=== PATIENT | female | born 1975 | race Two or more races ===

== ENCOUNTER 2022-10-15 17:20 | Outpatient (CLI) | payer SELFPAY | END 2022-10-15 17:21 | disposition home or self-care (01) | PROVIDERS: PCP Family Medicine; Visit Provider Physician Assistant | DX: R10.13 Epigastric pain (principal) | CPT/HCPCS: 84484; 85379 ==

== ENCOUNTER 2022-10-16 00:26 | Emergency (ER) | payer SELFPAY ==
[2022-10-16] VITALS (8 sets, daily range): BP systolic 101–129; BP diastolic 64–74; PULSE 56–82; RESP 16–18; TEMP 36.3–36.9; O2SAT 96–100; BMI 31.5
--- NOTE | 2022-10-16 01:40 | CRLHL7_ITS ---
For Patients: As a result of the Century Cures Act, medical imaging exams and procedure reports are released immediately into your electronic medical record. You may view this report before your referring provider. If you have questions, please contact your health care provider. INDICATION: Right upper quadrant pain, Epigastric TECHNIQUE: Ultrasound abdomen limited. Sonographic images of the right upper quadrant were obtained using quintero-scale and color Doppler images. COMPARISON: None FINDINGS: Liver: The liver parenchyma is normal in echotexture. Gallbladder: Numerous echogenic, shadowing gallstones are present within the gallbladder. Gallbladder wall is near the upper limits of normal measuring 4 mm. No pericholecystic fluid is present. No sonographic Yates???s sign is present. Common bile duct: 5 mm. No intrahepatic biliary ductal dilatation seen. Pancreas: The visualized portions of the pancreatic head and body are normal in appearance. Right Kidney: 11.4 cm. There is a cyst in the upper pole of the right kidney measuring 2 cm. No hydronephrosis or ureterectasis is seen. Vascular: The visualized abdominal aorta and IVC are unremarkable. IMPRESSION: 1. Numerous echogenic, shadowing gallstones are present within the gallbladder. Dictated by Thom Amezcua MD @ 10/16/2022 3:16:01 AM Dictated by: Thom Amezcua MD @ 10/16/2022 03:16:04 (Electronically Signed)
[2022-10-16] MEDS: 0.9 % SODIUM CHLORIDE 1000 ml 1,000 ML IV (01:49)
[2022-10-16 01:55] LABS: Basophils Absolute Auto 0.02 K/uL (0.00-0.30); Basophils Percent Auto 0.3 % (0.0-3.0); Eosinophils Absolute Auto 0.03 K/uL (0.00-0.50); Eosinophils Percent Auto 0.5 % (0.0-7.0); Hematocrit 37.6 % (33.0-51.0); Hemoglobin* 12.3 gm/dL (12.0-16.0); Lymphocytes Absolute Auto 1.57 K/uL (0.90-2.90); Lymphocytes Percent Auto 26.4 % (20-44); Mean Corpuscular HGB Conc 33 gm/dL (32-36); Mean Corpuscular Hemoglobin 30 pg (26-34); Mean Corpuscular Volume 93 fL (80-100); Monocytes Percent Auto 6.2 % (0.0-11.0); Neutrophils Absolute Auto 3.95 K/uL (1.7-7.0); Neutrophils Percent Auto 66.6 % (42.0-72.0); Platelet Count* 239 K/uL (140-440); RDW Coefficient of Variation % 12.3 % (11.5-15.5); Red Blood Count 4.04 m/uL (4.00-5.20); White Blood Count* 5.94 K/uL (4.50-11.00)
[2022-10-16 01:56] LABS: Appearance Urine Clear (Clear); Bilirubin Urine Negative (Negative); Blood Urine Trace-intact (Negative); Color Urine Yellow (Yellow); Glucose Urine Negative (Negative); Ketones Urine Negative (Negative); Leukocyte Esterase Urine Negative (Negative); Nitrite Urine Negative (Negative); Protein Urine Negative (Negative); Specific Gravity Urine >= 1.030 (1.000-1.030); Urobilinogen Urine 0.2 (0.2-1.0)
[2022-10-16 01:57] LABS: Slide Review Reflex No
[2022-10-16 02:07] LABS: Bacteria Urine Few; RBC Urine 0-2 (0-2); Squamous Epithelial Cell Urine Few (None-Few); WBC Urine 0-2 (0-5)
[2022-10-16 02:08] LABS: Albumin* 4.5 g/dL (3.3-5.0); Chloride* 103 mmol/L (96-114); Sodium* 135 mmol/L (135-149)
[2022-10-16 02:08] LABS: Mucus Urine Few
[2022-10-16 02:10] LABS: Amylase* 69 U/L (18-89)
[2022-10-16 02:11] LABS: Alanine Aminotransferase* 31 U/L (4-35); Alkaline Phosphatase* 77 U/L (40-150); Anion Gap 6 mEq/L (7-15); Aspartate Amino Transferase* 31 U/L (12-35); Bilirubin Total* 0.5 mg/dL (0.1-1.5); Blood Urea Nitrogen* 9 mg/dL (5-24); Carbon Dioxide* 26 mmol/L (20-32); Creatinine* 0.6 mg/dL (0.5-1.5); Est. Creatinine Clearance* 92.66; Estimated Glomerular Filt Rate 112 ml/min; Total Protein* 8.2 g/dL (6.0-8.3)
[2022-10-16 02:12] LABS: Calcium* 9.1 mg/dL (8.4-10.6); Glucose* 127 mg/dL (60-115)
[2022-10-16 02:15] LABS: C Reactive Protein* < 0.5 mg/dL (0.5-1.0)
--- NOTE | 2022-10-16 02:30 | ED.GENADULT ---
HPI - General Adult General Chief complaint: Abdominal Pain Stated complaint: abdominal pain Time Seen by Provider: 10/16/22 01:25 Source: patient, family and psychiatric registered nurse Mode of arrival: ambulatory Limitations: no limitations History of Present Illness HPI narrative: 46-year-old female reports 3 day history of intermittent epigastric area abdominal pain with occasional radiation to the mid back. No fevers, no nausea, no vomiting. Comes in waves, tends to last about 5 minutes at a time, can be severe at times. She describes a feeling of heartburn and then reports the start of the abdominal pain. States that it is sometimes related to food but not consistently. Her last meal was around 11:00 a.m., shortly before the pain started but the pain was most severe around 4:00 p.m. today. She reports that she was seen in urgent care. Notes and labs are reviewed. Negative troponins noted. She has not tried taking any medication to help with her symptoms. She denies nausea and vomiting to me. Abdominal x-ray was performed and this is also reviewed. She did have a moderate stool burden, but no free air or signs of obstruction per my interpretation. Urgent care provider prescribed Zofran and recommended cfaw-irw-wisqhpr omeprazole which the patient has not purchased nor tried. She does not give me a clear answer when I ask what worsened causing her to come to an emergency room. There was no blood in her stools, no gynecological changes, no dysuria. There has been no vomiting. No fever. No abdominal trauma. No prior history of similar symptoms. No family history of gallbladder disease. No recent significant alcohol intake. No prior history of abdominal surgeries, no personal history of cardiac disease. Past medical history she states is benign, no major long-term health problems. ROS is notable for a GI symptoms as above. Otherwise denies times 12 systems. ROS is notable for the epigastric area pain radiating as above, otherwise denies times 12 systems.. Related Data Home Medications Medication Instructions Recorded Confirmed ferrous sulfate 325 mg (65 mg 325 mg PO DAILY 10/16/22 10/16/22 iron) tablet (FeroSul) levothyroxine 100 mcg tablet 100 mcg PO DAILY 10/16/22 10/16/22 Allergies Allergy/AdvReac Type Severity Reaction Status Date / Time No Known Drug Allergies Allergy Verified 10/16/22 00:44 [facility] Medical History Epigastric pain ?R10.13 - Epigastric pain (ICD-10) Social History Smoking Status: Never smoker Do you use any of these nicotine containing products: None Second hand tobacco smoke exposure: No How often do you have a drink containing alcohol: never How often do you have six or more drinks on one occasion: Never AUDIT-C Alcohol total score: 0 Non-prescribed substance use: denies use service: No Exam Const: Vital Signs, click to edit/add: Vital Signs - 24 hr 10/16/22 00:40 10/16/22 01:54 10/16/22 02:01 Temperature 97.3 F L 98.5 F Pulse Rate 59 L 56 L Pulse Rate [Pulse Oximeter] 82 Respiratory Rate 18 16 16 Blood Pressure 112/65 114/70 Blood Pressure [Ri ght Upper Arm] 129/67 Pulse Oximetry 96 100 99 Oxygen Delivery Me thod Room Air 10/16/22 02:32 10/16/22 03:02 10/16/22 04:01 Temperature 98.5 F Pulse Rate 62 67 Pulse Rate [Pulse Oximeter] Respiratory Rate 16 16 Blood Pressure 101/64 108/72 Blood Pressure [Ri ght Upper Arm] Pulse Oximetry 100 100 Oxygen Delivery Me thod 10/16/22 04:07 Temperature 98.1 F Pulse Rate Pulse Rate [Pulse Oximeter] 74 Respiratory Rate 16 Blood Pressure Blood Pressure [Ri ght Upper Arm] 115/74 Pulse Oximetry 100 Oxygen Delivery Me thod Room Air Documenting provider has reviewed patient's vital signs: yes Common normals: no apparent distress General appearance: cooperative, comfortable and well kempt Other: Appears well nourished, nontoxic, well hydrated. HENMT: Common normals: normocephalic Head and scalp: normocephalic Face and sinus: normal facial exam Throat: posterior oropharynx normal Eye: Common normals: conjunctivae normal General eye: normal appearance of both eyes Conjunctiva: conjunctiva(e) normal Neck & C-Spine: Common normals: full ROM and no lymphadenopathy Resp: Common normals: normal respiratory effort, no use of accessory muscles and clear to auscultation bilaterally Effort & inspection: able to speak in complete sentences Auscultation: clear to auscultation bilaterally Cardio: Common normals: regular rate, regular rhythm, S1 normal heart sound, S2 normal heart sound and no murmurs Rate: regular rate Rhythm: regular rhythm Heart sounds: S1 normal and S2 normal GI: Common normals: Normal to inspection, nondistended, normoactive bowel sounds present, soft to palpation, no hepatosplenomegaly and no masses Palpation: soft and no hepatosplenomegaly Other: Tender to the right upper quadrant and epigastrium, it is difficult to sort out which of the 2 is worse but neither are accompanied by any guarding. Extremity: Common normals: normal to inspection, normal capillary refill and no pedal edema Neuro: Speech: speech normal Gait (neuro): normal gait Psych: Common normals: thought process normal and speech normal Appearance: well kempt Speech: normal speech Mood and affect: euthymic mood Thought process: normal thought process Insight: insight good Judgement: judgment good Skin: Common normals: no rashes or lesions noted General skin exam: no rashes or lesions noted Course Course Hospital Course: Differential diagnosis most likely GERD, cannot exclude pancreatitis, choledocholithiasis, cholecystitis, colitis, constipation, other similar etiology. Cardiac workup has already been performed and negative, results reviewed. Will not pursue this further. I have recommended oral famotidine and an ultrasound of the right upper quadrant to rule out gallbladder disease as well as liver enzymes. Additional few basic labs that were not able to be performed at urgent care and urinalysis. Await findings. Reevaluation(s) Time of Reevaluation #1: 02:58 Reevaluation #1: without any fever, white count, CRP elevation, less suspicion for infection. She declined the famotidine to the nurse, stating she did not have heartburn when she did clearly tell me that she had heartburn in used though specific words. Overall, her symptoms seem consistent with gallstones. No emergent findings. She would benefit from an outpatient surgical consult to see if cholecystectomy would be helpful. Will recommend gallbladder diet and discussed alarm symptoms that would warrant ED presentations such as fever, persistent vomiting, worsening of symptoms. Awaiting formal ultrasound report. Time of Reevaluation #2: 04:07 Reevaluation #2: Discussed ultrasound findings with patient through psychiatric registered nurse services. Discussed options for elective gallbladder removal. No signs of acute cholecystitis or obstruction that would warrant emergent removal. She would like to try conservative management but is willing to meet with the surgeon at my recommendation to discuss a possible outpatient cholecystectomy. Her stone burden is fairly high and based on her age, ethnicity and gender she is likely to have more gallbladder spells. She was agreeable to a trial of home management with famotidine and hydrocodone if Tylenol and ibuprofen are not effective. She will push fluids and avoid fat in her diet. She verbalizes good understanding to come back if there is any fever, failure of outpatient plan, worsening of pain, persistent vomiting or inability to hold down liquids. All questions answered. Surgical referral placed. Vital Signs Vital signs: Initial Vital Signs Temperature 97.3 F L 10/16/22 00:40 Temperature Source Temporal Artery Scan 10/16/22 00:40 Pulse Rate 82 10/16/22 00:40 Respiratory Rate 18 10/16/22 00:40 Blood Pressure 129/67 10/16/22 00:40 Blood Pressure Mean 87 10/16/22 00:40 Blood Pressure Position Sitting 10/16/22 00:40 Pulse Oximetry 96 10/16/22 00:40 Oxygen Delivery Method Room Air 10/16/22 00:40 Vital Signs Temperature 97.3 F L 10/16/22 00:40 Pulse Rate 82 10/16/22 00:40 Respiratory Rate 18 10/16/22 00:40 Blood Pressure 129/67 10/16/22 00:40 Pulse Oximetry 96 10/16/22 00:40 Oxygen Delivery Method Room Air 10/16/22 00:40 Temperature 98.1 F 10/16/22 04:07 Pulse Rate 74 10/16/22 04:07 Respiratory Rate 16 10/16/22 04:07 Blood Pressure 115/74 10/16/22 04:07 Pulse Oximetry 100 10/16/22 04:07 Oxygen Delivery Method Room Air 10/16/22 04:07 Medical Decision Making Lab Data Lab results reviewed: Yes I reviewed the patient's lab results Lab results narrative: Labs reassuring. Labs ordered by urgent care provider previously also reviewed, not all were repeated. Labs: Lab Results 10/16/22 10/16/22 Range/Units 01:40 01:45 WBC 5.94 (4.50-11.00) K/uL RBC 4.04 (4.00-5.20) m/uL Hgb 12.3 (12.0-16.0) gm/dL Hct 37.6 (33.0-51.0) % MCV 93 (80-100) fL MCH 30 (26-34) pg MCHC 33 (32-36) gm/dL RDW Coeff of Alize 12.3 (11.5-15.5) % Plt Count 239 (140-440) K/uL Neut % (Auto) 66.6 (42.0-72.0) % Lymph % (Auto) 26.4 (20-44) % Perkins % (Auto) 6.2 (0.0-11.0) % Eos % (Auto) 0.5 (0.0-7.0) % Baso % (Auto) 0.3 (0.0-3.0) % Neut # (Auto) 3.95 (1.7-7.0) K/uL Lymph # (Auto) 1.57 (0.90-2.90) K/uL Perkins # (Auto) 0.40 (0.00-0.90) K/UL Eos # (Auto) 0.03 (0.00-0.50) K/uL Baso # (Auto) 0.02 (0.00-0.30) K/uL Abs Immat Gran (auto) 0.00 (0.00-0.30) K/uL Imm/Tot Granulo (auto) 0.0 % Sodium 135 (135-149) mmol/L Potassium 4.0 (3.6-5.1) mmol/L Chloride 103 (96-114) mmol/L Carbon Dioxide 26 (20-32) mmol/L Anion Gap 6 L (7-15) mEq/L BUN 9 (5-24) mg/dL Creatinine 0.6 (0.5-1.5) mg/dL Estimated Creat Clear 92.66 Estimated GFR 112 ml/min Glucose 127 H (60-115) mg/dL Calcium 9.1 (8.4-10.6) mg/dL Total Bilirubin 0.5 (0.1-1.5) mg/dL AST 31 (12-35) U/L ALT 31 (4-35) U/L Alkaline Phosphatase 77 (40-150) U/L C-Reactive Protein < 0.5 L (0.5-1.0) mg/dL Total Protein 8.2 (6.0-8.3) g/dL Albumin 4.5 (3.3-5.0) g/dL Amylase 69 (18-89) U/L Urine Color Yellow (Yellow) Urine Appearance Clear (Clear) Urine pH 6.0 (5.0-8.5) Ur Specific [place] >= 1.030 (1.000-1.030) Urine Protein Negative (Negative) Urine Glucose (UA) Negative (Negative) Urine Ketones Negative (Negative) Urine Blood Trace-intact A (Negative) Urine Nitrite Negative (Negative) Urine Bilirubin Negative (Negative) Urine Urobilinogen 0.2 (0.2-1.0) Ur Leukocyte Esterase Negative (Negative) Urine RBC 0-2 (0-2) Urine WBC 0-2 (0-5) Ur Squamous Epith Cells Few (None-Few) Urine Bacteria Few A (None) Urine Mucus Few A (None) Imaging Data US - abdomen: Attestation: I have reviewed the pertinent imaging results. My impression: Gallbladder stones. Questionable borderline wall thickening but seems more reactive to the stones rather than consistent with acute cholecystitis. Radiologist's impression: IMPRESSION: 1. Numerous echogenic, shadowing gallstones are present within the gallbladder. Discharge Plan Discharge Clinical Impression: Choledocholithiasis Patient Disposition: Home w/ Parent or Adult Condition: Stable Instructions: Gallstones (ED) Additional Instructions: As we discussed, your ultrasound shows gallstones. Thankfully based on your labs and the ultrasound and x-rays performed earlier today, there are no signs of obstruction or of gallbladder infection. For most people, the pain goes away in a couple of days. It is important that you avoid fatty foods in the meantime. For the next 48 hours, I would like for you to eat a very bland diet of clear liquids, broth, dry toast, crackers. You can move up to chicken soup and other very bland foods after 36 hours if things are feeling very good. Any fried foods, salad dressing, or other fatty foods will likely make your symptoms come back. Do not drink any alcohol for the next couple of weeks. As we discussed, you have had these gallstones for many years, likely decades. Often, they cause no symptoms but occasionally flare up like your current pain. The pain tends to be bothersome for a few days and then will usually go away again. The only definitive treatment is to have the gallbladder removed. This is a very common surgery but does have a couple week recovery. I would like for you to see 1 of our surgeons to discuss having her gallbladder out. You guys can decide together if that is a good choice for you. If you start having high fevers, significant nausea and vomiting, severe pain or you are unable to hold down any food or liquids, you should come back to the emergency room. This can be a sign of an infection or an obstruction and we would need to take the gallbladder out more emergently. I would like for you to take an dywq-aln-vgpbqfs antacid medicines such as famotidine or omeprazole once daily for the next couple of weeks and also use Tylenol and or ibuprofen for pain. Proper dosing of ibuprofen is 600 mg every 6 hours and Tylenol is 1000 mg every 6 hours. I will also give you a small supply of hydrocodone, a stronger pain medicine to use if your symptoms are very bothersome. This may cause a little bit of nausea and constipation. They should call you from the surgeon office within the next couple of days to set up an outpatient appointment. Come back to the emergency room sooner if things are not going well with this plan. Penryn comentamos, yeager ecograf?a muestra c?lculos biliares. Afortunadamente, seg?n denis an?lisis de laboratorio y la ecograf?a y las radiograf?as realizadas hoy, no hay signos de obstrucci?n o infecci?n de la ves?cula biliar. Para la mayor?a de las personas, el dolor desaparece en un par de d?as. Mientras tanto, es importante que evites los alimentos grasos. Fatou las pr?ximas 48 horas, me gustar?a que comieras nidhi dieta muy blanda de l?quidos viola, caldo, tostadas secas y galletas saladas. Puede pasar a sopa de rey y otros alimentos muy suaves despu?s de 36 horas si se siente muy alli. Cualquier alimento frito, aderezo para ensaladas u otros alimentos grasos probablemente paris? que denis s?ntomas reaparezcan. No alexa alcohol fatou las pr?ximas semanas.Nick comentamos, usted covarrubias tenido estos c?lculos biliares fatou muchos a?os, probablemente d?cadas. A menudo, no causan s?ntomas, donna ocasionalmente surgen nick yeager dolor actual. El dolor tiende a ser molesto fatou unos d?as y luego suele desaparecer nuevamente. El ?teena tratamiento definitivo es la extirpaci?n de la ves?cula biliar. Esta es nidhi cirug?a muy com?n donna tiene un par de semanas de recuperaci?n. Me gustar?a que romo a rosalia de nuestros cirujanos para hablar sobre la extirpaci?n de la ves?cula biliar. Ustedes pueden decidir juntos si lisa es nidhi buena opci?n para ustedes.Si comienza a tener fiebre yudelka, n?useas y v?mitos importantes, dolor intenso o no puede retener alimentos o l?quidos, debe regresar a la vance de emergencias. [place] puede ser un signo de infecci?n u obstrucci?n y necesitar?olu extraer la ves?cula biliar de manera m?s urgente.Me gustar?a que tomara medicamentos anti?cidos de venta mary carmen nick famotidina u omeprazol nidhi vez al d?a fatou las pr?ximas semanas y tambi?n usara Tylenol o ibuprofeno para el dolor. La dosis adecuada de ibuprofeno es de 600 mg cada 6 horas y de Tylenol es de 1000 mg cada 6 horas. Tambi?n le devon? nidhi nieves?a cantidad de hidrocodona, un analg?sico m?s francisco que puede usar si denis s?ntomas son muy molestos. [place] puede causar un poco de n?useas y estre?imiento. Deber?an llamarlo desde el consultorio del cirujano dentro de los pr?ximos d?as para programar nidhi kimmy ambulatoria. Regrese a la vance de emergencias antes si las cosas no van alli con amalia plan. Activity Level: Activity as Tolerated Discharge Diet: Low Fat/Low Cholesterol Prescriptions: No Action levothyroxine 100 mcg tablet 100 mcg PO DAILY ferrous sulfate [FeroSul] 325 mg (65 mg iron) tablet 325 mg PO DAILY Follow Up/Referrals: Claire Pedersen MD [Staff Physician] - (First available general surgery. Gallstones. Recommend outpatient cholecystectomy. Israeli-speaking) Carlos Martinez MD [Primary Care Provider] - Stand Alone Forms: [facility] Instructions
[2022-10-16] MEDS: HYDROCODONE-ACETAMIN 5-325 MG 1 TAB PO (04:01)
[2022-10-16] MEDS: FAMOTIDINE 20 MG TABLET PO (04:01)
== END 2022-10-16 04:15 | disposition home or self-care (01) ==
PROVIDERS: Emergency Provider Family Medicine; PCP Family Medicine
DX: K80.50 Calculus of bile duct without cholangitis or cholecystitis without obstruction (principal)
CPT/HCPCS: 36415; 76705; 80053; 81003; 81015; 82150; 85025; 86140; 87086; 99284; A9270; J7030

== ENCOUNTER 2022-10-21 16:28 | Emergency (ER) | payer SELFPAY ==
[2022-10-21 16:37] VITALS: BP 116/78; PULSE 85; RESP 14; TEMP 36.2; O2SAT 98; BMI 31.1
[2022-10-21 17:41] LABS: Lactate* 0.7 mmol/L (0.5-1.9)
[2022-10-21 18:04] LABS: Basophils Absolute Auto 0.02 K/uL (0.00-0.30); Basophils Percent Auto 0.3 % (0.0-3.0); Eosinophils Absolute Auto 0.05 K/uL (0.00-0.50); Eosinophils Percent Auto 0.8 % (0.0-7.0); Hematocrit 38.2 % (33.0-51.0); Hemoglobin* 12.5 gm/dL (12.0-16.0); Lymphocytes Absolute Auto 1.56 K/uL (0.90-2.90); Mean Corpuscular HGB Conc 33 gm/dL (32-36); Mean Corpuscular Hemoglobin 30 pg (26-34); Mean Corpuscular Volume 93 fL (80-100); Monocytes Percent Auto 7.5 % (0.0-11.0); Neutrophils Absolute Auto 4.15 K/uL (1.7-7.0); Neutrophils Percent Auto 66.4 % (42.0-72.0); Platelet Count* 253 K/uL (140-440); RDW Coefficient of Variation % 12.2 % (11.5-15.5); Red Blood Count 4.12 m/uL (4.00-5.20); White Blood Count* 6.25 K/uL (4.50-11.00)
[2022-10-21 18:05] LABS: Albumin* 4.6 g/dL (3.3-5.0)
[2022-10-21 18:06] LABS: Chloride* 105 mmol/L (96-114); Potassium* 3.9 mmol/L (3.6-5.1); Sodium* 139 mmol/L (135-149)
[2022-10-21 18:08] LABS: Anion Gap 9 mEq/L (7-15); Carbon Dioxide* 25 mmol/L (20-32); Creatinine* 0.7 mg/dL (0.5-1.5); Est. Creatinine Clearance* 79.42; Estimated Glomerular Filt Rate 108 ml/min
[2022-10-21 18:09] LABS: Alanine Aminotransferase* 29 U/L (4-35); Alkaline Phosphatase* 75 U/L (40-150); Aspartate Amino Transferase* 29 U/L (12-35); Bilirubin Total* 0.4 mg/dL (0.1-1.5); Blood Urea Nitrogen* 13 mg/dL (5-24); Calcium* 9.8 mg/dL (8.4-10.6); Glucose* 98 mg/dL (60-115); Lipase* 89 U/L (23-300); Slide Review Reflex No; Total Protein* 8.6 g/dL (6.0-8.3)
[2022-10-21 18:13] LABS: C Reactive Protein* 0.7 mg/dL (0.5-1.0)
--- NOTE | 2022-10-21 18:36 | ED.GENADULT ---
HPI - General Adult General Chief complaint: Abdominal Pain Stated complaint: pain from kidney stones Time Seen by Provider: 10/21/22 16:44 Source: patient Mode of arrival: ambulatory Limitations: no limitations History of Present Illness HPI narrative: 46-year-old female coming in today complaining of abdominal pain. Patient was seen on the of this month diagnosed with cholelithiasis. States that the pain has been unbearable. Does not matter what she eats it causes her terrible right upper quadrant epigastric pain. She has not been vomiting but she does feel chills every now and then. She denies fevers. She returns to the ER because she is having such a difficult time. She is even having a hard time sleeping at night because of the discomfort. The hydrocodone that she was prescribed is not helping. She is generally a healthy female without any intra-abdominal surgeries in the past. She takes no medications on a regular basis. Related Data Home Medications Medication Instructions Recorded Confirmed No Known Home Medications 10/21/22 10/21/22 Allergies Allergy/AdvReac Type Severity Reaction Status Date / Time No Known Drug Allergies Allergy Verified 10/16/22 00:44 Review of Systems Status of ROS: Reports: 10 or more systems reviewed and unremarkable except as noted in History and below [facility] Medical History Epigastric pain ?R10.13 - Epigastric pain (ICD-10) Social History Smoking Status: Never smoker Do you use any of these nicotine containing products: None Second hand tobacco smoke exposure: No How often do you have a drink containing alcohol: never How often do you have six or more drinks on one occasion: Never AUDIT-C Alcohol total score: 0 Non-prescribed substance use: denies use service: No Exam Narrative: Exam Narrative: Well-nourished well-developed patient in no acute distress. Alert and oriented. Answers questions appropriately. Mood and affect are appropriate. Thoughts are goal oriented and rational. No tangential or magical thinking noted. Patient speaks in full sentences without needing to catch her breath. She does not appear ill or toxic. HEENT: Normocephalic atraumatic. Pupils are equally round reactive to light. Extraocular muscles are intact. Conjunctivae are moist without any icterus noted. Moist mucous membranes. Posterior pharynx is normal. Neck is soft without any lymphadenopathy or thyromegaly. No masses are appreciated. Cardiovascular: Heart is regular rate and rhythm S1 and S2 are present without any murmurs. Lungs: Clear to auscultation bilaterally no wheezes rhonchi or rales are appreciated. Patient takes deep breaths without any discomfort. Abdomen: Soft and nondistended with normal bowel sounds. No guarding or rebound. She does have right upper quadrant tenderness and a positive Yates sign. Extremities: Bilateral lower extremities are without edema. Skin: Well perfused without any obvious rashes. Const: Vital Signs, click to edit/add: Vital Signs - 24 hr 10/21/22 16:37 Temperature 97.1 F L Pulse Rate [Pulse Oximeter] 85 Respiratory Rate 14 Blood Pressure [Ri ght Upper Arm] 116/78 Pulse Oximetry 98 Oxygen Delivery Me thod Room Air Course Course Hospital Course: Blood work was repeated to rule out cholecystitis for any acute signs of infection. Blood work was unremarkable. Did review her ultrasound from the which does show cholelithiasis with numerous stones. Spoke to Dr. Pedersen who did recommend a cholecystectomy in the morning. Discussed with the patient admission and pain control versus going home and returning in the morning and she chooses to go home at this time. We discussed a different pain medication to go home with. Vital Signs Vital signs: Initial Vital Signs Temperature 97.1 F L 10/21/22 16:37 Temperature Source Temporal Artery Scan 10/21/22 16:37 Pulse Rate 85 10/21/22 16:37 Pulse Rhythm Regular 10/21/22 16:37 Respiratory Rate 14 10/21/22 16:37 Blood Pressure 116/78 10/21/22 16:37 Blood Pressure Mean 90 10/21/22 16:37 Blood Pressure Position Sitting 10/21/22 16:37 Pulse Oximetry 98 10/21/22 16:37 Oxygen Delivery Method Room Air 10/21/22 16:37 Vital Signs Temperature 97.1 F L 10/21/22 16:37 Pulse Rate 85 10/21/22 16:37 Respiratory Rate 14 10/21/22 16:37 Blood Pressure 116/78 10/21/22 16:37 Pulse Oximetry 98 10/21/22 16:37 Oxygen Delivery Method Room Air 09/03/23 16:37 Temperature 97.1 F L 10/21/22 16:37 Pulse Rate 85 10/21/22 16:37 Respiratory Rate 14 10/21/22 16:37 Blood Pressure 116/78 10/21/22 16:37 Pulse Oximetry 98 10/21/22 16:37 Oxygen Delivery Method Room Air 10/21/22 16:37 Medical Decision Making MDM Narrative Medical decision making narrative: 46-year-old female with cholelithiasis and increasing pain. Patient will be sent home at this time she will return in the morning for cholecystectomy. Will send her home with Percocet. Patient will be NPO after midnight. Medical Records Medical records reviewed: Yes I reviewed the patient's medical records Lab Data Lab results reviewed: Yes I reviewed the patient's lab results Labs: Lab Results 10/21/22 Range/Units 17:32 WBC 6.25 (4.50-11.00) K/uL RBC 4.12 (4.00-5.20) m/uL Hgb 12.5 (12.0-16.0) gm/dL Hct 38.2 (33.0-51.0) % MCV 93 (80-100) fL MCH 30 (26-34) pg MCHC 33 (32-36) gm/dL RDW Coeff of Alize 12.2 (11.5-15.5) % Plt Count 253 (140-440) K/uL Neut % (Auto) 66.4 (42.0-72.0) % Lymph % (Auto) 25.0 (20-44) % Floyd % (Auto) 7.5 (0.0-11.0) % Eos % (Auto) 0.8 (0.0-7.0) % Baso % (Auto) 0.3 (0.0-3.0) % Neut # (Auto) 4.15 (1.7-7.0) K/uL Lymph # (Auto) 1.56 (0.90-2.90) K/uL Floyd # (Auto) 0.50 (0.00-0.90) K/UL Eos # (Auto) 0.05 (0.00-0.50) K/uL Baso # (Auto) 0.02 (0.00-0.30) K/uL Abs Immat Gran (auto) 0.00 (0.00-0.30) K/uL Imm/Tot Granulo (auto) 0.0 % Sodium 139 (135-149) mmol/L Potassium 3.9 (3.6-5.1) mmol/L Chloride 105 (96-114) mmol/L Carbon Dioxide 25 (20-32) mmol/L Anion Gap 9 (7-15) mEq/L BUN 13 (5-24) mg/dL Creatinine 0.7 (0.5-1.5) mg/dL Estimated Creat Clear 79.42 Estimated GFR 108 ml/min Glucose 98 (60-115) mg/dL Lactate 0.7 (0.5-1.9) mmol/L Calcium 9.8 (8.4-10.6) mg/dL Total Bilirubin 0.4 (0.1-1.5) mg/dL Direct Bilirubin 0.0 (0.0-0.5) mg/dL AST 29 (12-35) U/L ALT 29 (4-35) U/L Alkaline Phosphatase 75 (40-150) U/L C-Reactive Protein 0.7 (0.5-1.0) mg/dL Total Protein 8.6 H (6.0-8.3) g/dL Albumin 4.6 (3.3-5.0) g/dL Lipase 89 (23-300) U/L Discharge Plan Discharge Clinical Impression: Cholelithiasis Patient Disposition: Home, Self-Care Condition: Stable Additional Instructions: Do not eat any food or drink water after midnight today. Take pain medication as needed with very small sips of water. Instructions on when to return in the morning will be provided by nursing staff. Pain medications sent to [facility]. Prescriptions: No Action No Known Home Medications Follow Up/Referrals: Carlos Martinez MD [Primary Care Provider] - Stand Alone Forms: [facility] Info Instructions
[2022-10-21] MEDS: HYDROCODONE-ACETAMIN 5-325 MG 1 TAB 2 TAB PO (18:59)
[2022-10-21 19:26] VITALS: RESP 16
== END 2022-10-21 19:26 | disposition home or self-care (01) ==
PROVIDERS: Emergency Provider Family Medicine; PCP Family Medicine
DX: K80.20 Calculus of gallbladder without cholecystitis without obstruction (principal)
CPT/HCPCS: 36415; 80048; 80076; 81001; 83605; 83690; 85025; 86140; 99283; 99284; A9270

== ENCOUNTER 2022-10-22 07:33 | Day surgery (SDC) | payer OTHER, SELFPAY ==
[2022-10-22] VITALS (19 sets, daily range): BP systolic 90–130; BP diastolic 54–78; PULSE 54–80; RESP 12–20; TEMP 36.2–37.2; O2SAT 9–99; BMI 30.2
[2022-10-22] MEDS: 0.9 % SODIUM CHLORIDE 1000 ml 1,000 ML 125 ML IV (09:00)
--- NOTE | 2022-10-22 09:15 | P.GSCN_ITS ---
History of Present Illness Consult details Date Seen: 10/22/22 Consult date: 10/22/22 Narrative: Patient is a 46-year-old female, with several recent emergency room visits for right upper quadrant abdominal pain after eating. She states that the symptoms started last Saturday. If feels like she has severe, stabbing pain on her right side whenever she tries to eat any food. She also experiences the pain unprovoked at night. She does have a history of reflux, but feels like these symptoms are different than what she has experienced in the past. She denies any pain in between episodes. She initially was sent home with hydrocodone with plans to see a surgeon as an outpatient. She has been unable to tolerate the pain and discomfort at home. Denies any fevers. She has never had abdominal surgery before. Review of Systems Status of ROS: Reports: 10 or more systems reviewed and unremarkable except as noted in History and below [facility] Medical History Epigastric pain ?R10.13 - Epigastric pain (ICD-10) Social History Smoking Status: Never smoker Do you use any of these nicotine containing products: None Second hand tobacco smoke exposure: No How often do you have a drink containing alcohol: never How often do you have six or more drinks on one occasion: Never AUDIT-C Alcohol total score: 0 Non-prescribed substance use: denies use service: No Meds Home Medications and Allergies Home Medications Medication Instructions Recorded Confirmed Type No Known Home Medications 10/21/22 10/21/22 History Allergies Allergy/AdvReac Type Severity Reaction Status Date / Time No Known Drug Allergies Allergy Verified 10/16/22 00:44 Exam Narrative: Exam Narrative: General: Alert and oriented, no acute distress Respiratory: Equal breath rise bilaterally, maintained on room air CV: Regular rhythm rate Abdomen: Soft, mild tenderness to deep palpation right upper quadrant with no guarding or rebound. Results Labs Labs: Labs within normal limits. No elevation in LFTs. Imaging Abdominal ultrasound report/results: report reviewed and image reviewed Assessment and Plan Assessment and plan (1) Cholelithiasis: Status: Acute Plan Patient is an otherwise healthy 46-year-old female with workup in clinical history concerning for biliary colic. I had a detailed conversation with the patient regarding the diagnosis of chronic cholecystitis and biliary colic. We discussed the treatment options including observation with diet modification and laparoscopic cholecystectomy. We discussed the risks of surgery (including but not limited to) the risks of bleeding, infection, injury to other structures in the abdomen including bile duct injury, bile leak and conversion to an open operation. We discussed the possibility that the patient's pain not improve with surgery. We discussed the possibility of permanent post-operative diarrhea that may require medical management. Additionally, the conceivably of complications requiring additional surgery or further hospitalization were also discussed including the risks of GA, respiratory failure, stroke and blood clots. The patient voiced an understanding of our conversation, had the opportunity to ask questions, agreed to accept the risks of surgery and asked that we proceed with surgery. -OR for laparoscopic cholecystectomy
[2022-10-22 09:27] LABS: Ur HCG Qualitative* Negative (Negative)
[2022-10-22] MEDS: CEFAZOLIN 2 GM INJ IVP (10:15)
--- NOTE | 2022-10-22 11:46 | P.GSOP_ITS ---
Operative Note Pre-op diagnosis: Biliary colic, chronic cholecystitis Post-op diagnosis: Acute cholecystitis, hydrops Type of Procedure: Laparoscopic cholecystectomy Indications: Patient is a 46-year-old female with recent visits to the emergency department and clinical workup consistent with chronic cholecystitis. Risks and benefits of operative intervention were discussed at length with the patient. Risks included but was not limited to: Bleeding, infection, risk of damage to surrounding structures, possible need for additional procedures, possible need to convert to an open operation and postoperative complications such as pneumonia, pulmonary emboli or VT. All questions and concerns were addressed with the patient agreeing to proceed. Procedure Description: After discussing the risks and benefits of the procedure, the patient signed informed consent.? The operative site was marked and the patient was brought to the operating room and placed on the operating table in supine position.? Care was taken to pad the patient's pressure points.?? The patient was then intubated by anesthesia.?? The operative site was then prepped and draped in the usual sterile fashion.? A time-out was then performed. Entrance to the abdomen was gained via a 5 mm Visiport in the left upper quadrant. The abdomen was insufflated and briefly surveyed for signs of injury. There was none. 11 mm umbilical port was placed as well as 2 working ports along the right costal margin. Patient did have evidence of a small umbilical hernia, through which the 11 mm port went through. The patient was then placed in reverse Trendelenburg position with the right side up. The gallbladder fundus was distended and difficult to grasp. A laparoscopic needle was used to decompress the gallbladder, with evidence of hydrops. Once decompressed the gallbladder fundus was grasped and retracted cephalad. [A small amount of dissection was needed to free omental adhesions from the gallbladder.] The infundibulum was grasped. A combination of hook cautery and blunt dissection was used to carefully dissect out the cystic duct and artery until they could clearly be seen entering the gallbladder without any intervening structures. The gallbladder was dissected off the cystic plate to achieve the critical view. Once this was achieved the cystic artery was clipped with 2 clips proximally and 1 clip distally and transected with the scissors. The cystic duct was dilated, due to the stone burden present. The stones were milked distally into the ga llbladder body. The duct was unable to be ligated completely with 5 mm clips. Two clips were placed proximal, with incomplete closure. The cystic duct was then transected with laparoscopic scissors. The cystic duct was ligated with an 0 Vicryl endoloop, which was placed just proximal to the 5 mm clips. A single stone spilled into the abdomen and was unable to be retrieved behind the liver. No other stone or bile spillage was noted. The gallbladder was then taken off of the liver bed. And removed from the abdomen using an Endo-Catch bag. The gallbladder bed was surveyed for hemostasis, which was excellent. The umbilical port fascia was closed with a [id number] stitch via an 0 Vicryl. This did close the small umbilical hernia that was present. All of the other ports were then removed. The skin was closed with absorbable subcuticular suture. Instrument sponge and needle counts were correct at the end of the case. The patient was then woken and transferred to the PACU in stable condition. Findings: Hydrops of the gallbladder, acute cholecystitis Anesthesia: GETA Surgeon: Claire Pedersen MD Estimated blood loss (mL): 5 Specimen: Gallbladder Condition: stable Disposition: PACU Date of procedure: 10/22/22
[2022-10-22] MEDS: LACTATED RINGERS 1000 ML 1,000 ML 100 ML IV (11:50)
--- NOTE | 2022-10-22 11:56 | P.ANES_ITS ---
Anesthesia Charges Start Date/Time Anesthesia Start Date: 10/22/22 Anesthesia Start Time: 10:09 Stop Date/Time Anesthesia Stop Date: 10/22/22 Anesthesia Stop Time: 11:55 Summary Emergency: [employer]
[2022-10-22] MEDS: LACTATED RINGERS 1000 ML 1,000 ML 35 ML IV (12:04)
--- NOTE | 2022-10-22 16:01 | PC.NURSE ---
Pt pleasant and conversational in [place] for non-medical information. Pt is rating pain 1-2/10, denies need for additional medication. Tolerates Soup and toast as well as water. Voided without complication. Surgical site x4 closed with glue, no drainage noted. Pt wished to DC with home this evening.
[2022-10-22] MEDS: OXYCODONE 5 MG TABLET PO (20:04)
--- NOTE | 2022-10-22 22:35 | PC.NURSE ---
Pt alert and oriented x3. Afebrile. Pt reports 5/10 pain in abdomen with movement, managed with PRN oxycodone. Pt has 4 glued incision sites that are CDI. Pt denied chest pain, SOB, and N/V. Pt is voiding, tolerating a regular diet and up ad daniel in room. Oral and written information was given at discharge, tank processor used. Written information packets were in [place]. Pt IV was discontinued with catheter intact. Pt was wheeled out in wheelchair at discharge with spouse at side.
== END 2022-10-22 20:09 | disposition home or self-care (01) ==
LOC: OR 07:35 → MEDSURG 07:37
PROVIDERS: PCP Family Medicine; Visit Provider Surgery
PROC: 0FT44ZZ Resection of Gallbladder, Percutaneous Endoscopic Approach (ICD-10-PCS; CPT 47562; principal; 2022-10-22 09:20)
DX: K80.12 Calculus of gallbladder with acute and chronic cholecystitis without obstruction (principal); K82.1 Hydrops of gallbladder
CPT/HCPCS: 47562; 00790; 81025; 88304; 99140; A9270; J0330; J0690; J1100; J1885; J2405; J2704; J2710; J3010; J7030; J7120

== ENCOUNTER 2025-01-07 07:44 | Outpatient (CLI) | payer OTHER, SELFPAY | END 2025-01-07 07:45 | disposition home or self-care (01) | LOC: NFLDREF 01-10 17:27 | PROVIDERS: PCP Internal Medicine; Referring Provider Internal Medicine; Visit Provider Internal Medicine | DX: E78.5 Hyperlipidemia, unspecified (principal) | CPT/HCPCS: 80053; 80061; 83001; 83002; 84270; 84402; 84403 ==